=== PATIENT | female | born 1990 | race Caucasian/White ===

== ENCOUNTER 2022-02-12 01:46 | Emergency (ER) | payer BC ==
[2022-02-12] MEDS ORDERED: valACYclovir 1,000 MG Tab PO ONE (04:16)
== END 2022-02-12 04:29 | disposition home or self-care (01) ==
LOC: JD.ED 01:46
DX: B02.9 Zoster without complications (principal); R21 Rash and other nonspecific skin eruption; G56.01 Carpal tunnel syndrome, right upper limb; R00.0 Tachycardia, unspecified; Z88.5 Allergy status to narcotic agent; Z88.2 Allergy status to sulfonamides
CPT/HCPCS: 93005; 99284; A9270; 93010

== ENCOUNTER 2022-02-13 01:35 | Emergency (ER) | payer BC ==
[2022-02-13 03:10] LABS: ESTIMATED GFR 101 mL/min (>60)
== END 2022-02-13 03:33 | disposition home or self-care (01) ==
LOC: JD.ED 01:35
DX: R20.2 Paresthesia of skin (principal); F41.9 Anxiety disorder, unspecified; Z79.899 Other long term (current) drug therapy; Z88.5 Allergy status to narcotic agent; Z88.2 Allergy status to sulfonamides
CPT/HCPCS: 36415; 80053; 83735; 93005; 93010; 99284